=== PATIENT | male | born 1960 | race Caucasian/White ===

== ENCOUNTER 2019-03-20 09:46 | Emergency (ER) | payer OTHER ==
[2019-03-20 09:59] VITALS: BP 158/77
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
--- NOTE | 2019-03-20 11:11 | CR ---
Cervical spine: AP, lateral and odontoid views of the cervical spine were obtained as well as swimmers view. Mild disc space narrowing is noted at C5-C6. Anterior osteophytes are noted at C2-C3, C4-C5, C5-C6 and minimally at C6-C7. Prevertebral soft tissues are normal. No subluxation or fracture is seen. Mild ligamentum nuchal calcification is seen. Impression: 1. Mild degenerative change. Nothing acute is appreciated on CT study of the cervical spine. Diagnostic code #2
== END 2019-03-20 10:58 | disposition home or self-care (01) ==
LOC: JD.ED 09:46
DX: S16.1XXA Strain of muscle, fascia and tendon at neck level, initial encounter (principal); I10 Essential (primary) hypertension; E11.9 Type 2 diabetes mellitus without complications; I48.91 Unspecified atrial fibrillation; E78.00 Pure hypercholesterolemia, unspecified; M19.90 Unspecified osteoarthritis, unspecified site; E66.9 Obesity, unspecified; Z68.43 Body mass index [BMI] 50.0-59.9, adult; Z88.5 Allergy status to narcotic agent; Z79.82 Long term (current) use of aspirin; Z79.4 Long term (current) use of insulin; Z79.01 Long term (current) use of anticoagulants; Z79.899 Other long term (current) drug therapy; V58.5XXA Driver of pick-up truck or van injured in noncollision transport accident in traffic accident, initial encounter
CPT/HCPCS: 72040; 72040-26; 99282; 99283-25

== ENCOUNTER 2025-06-16 14:08 | Emergency (ER) | payer MEDICARE, OTHER ==
[2025-06-16] MEDS ORDERED: Sodium Chloride 0.9% 10 ML Syringe FLUSH PRN (16:43)
[2025-06-16 17:31] LABS: BASOPHILS ABSOLUTE AUTO 0.1 K/mm3 (0.0-0.2); BASOPHILS PERCENT AUTO 0.9 % (0.0-1.0); EOSINOPHILS ABSOLUTE AUTO 0.2 K/mm3 (0.0-0.4); EOSINOPHILS PERCENT AUTO 2.4 % (0.0-6.0); IMMATURE GRAN ABSOLUTE AUTO 0.08 K/mm3 (0.00-0.05); IMMATURE GRAN PERCENT AUTO 0.9 % (0.0-0.4); LYMPHOCYTES ABSOLUTE AUTO 0.8 K/mm3 (1.0-4.8); LYMPHOCYTES PERCENT AUTO 8.9 % (24.0-44.0); MEAN PLATELET VOLUME 9.3 fl (9.4-12.4); MONOCYTES ABSOLUTE AUTO 0.8 K/mm3 (0.0-0.8); MONOCYTES PERCENT AUTO 8.3 % (0.0-8.0); NEUTROPHILS ABSOLUTE AUTO 7.3 K/mm3 (1.8-7.7); NEUTROPHILS PERCENT AUTO 78.6 % (41.0-71.0); NRBC ABSOLUTE 0.00 (0.00-0.02); NRBC PERCENT 0.0 % (0.0-0.2); PLATELET COUNT,PLT 380 K/mm3 (150-400); RED BLOOD CELL COUNT 4.98 M/mm3 (4.52-5.90); WHITE BLOOD CELL COUNT,WBC 9.32 K/mm3 (3.9-11.3)
[2025-06-16 17:57] LABS: LACTIC ACID 1.4 mmol/L (0.4-2.0)
[2025-06-16 18:04] LABS: A/G RATIO 0.6 (1-2); ALANINE AMINOTRANSFERASE,ALT 30.0 U/L (16-63); ASPARTATE AMNIOTRANSFERASE,AST 28.0 U/L (15-37); BILIRUBIN TOTAL 1.1 mg/dL (0.2-1.0); BLOOD UREA NITROGEN,BUN 60.0 mg/dL (7-18); CARBON DIOXIDE,CO2 36.0 mEq/L (21-32); CHLORIDE,CL 96.0 mEq/L (98-107); CREATININE 1.3 mg/dL (0.7-1.3); EST CRCL DRUG DOSING (CG) 56.65 mL/min; ESTIMATED GFR 61.0 mL/min (>60); GLUCOSE RANDOM 261.0 mg/dL (70-99); POTASSIUM,K 4.9 mEq/L (3.5-5.1); PROTEIN TOTAL,TP 7.4 g/dl (6.4-8.2); SODIUM,NA 135.0 mEq/L (136-145)
[2025-06-16] MEDS: cefTRIAXone 1 GM, Lidocaine 1% 2.1 ML IM STA (21:24)
[2025-06-16 23:11] VITALS: BP 138/98; PULSE 73
== END 2025-06-16 21:35 | disposition home or self-care (01) ==
LOC: JD.ED 14:08
DX: I87.2 Venous insufficiency (chronic) (peripheral) (principal); L03.116 Cellulitis of left lower limb; L03.115 Cellulitis of right lower limb; I48.91 Unspecified atrial fibrillation; I10 Essential (primary) hypertension; E78.00 Pure hypercholesterolemia, unspecified; E11.9 Type 2 diabetes mellitus without complications; E66.9 Obesity, unspecified; Z79.899 Other long term (current) drug therapy; Z79.4 Long term (current) use of insulin; Z79.84 Long term (current) use of oral hypoglycemic drugs; Z88.8 Allergy status to other drugs, medicaments and biological substances; Z68.43 Body mass index [BMI] 50.0-59.9, adult
CPT/HCPCS: 36415; 80053; 82947; 83605; 85025; 85652; 86140; 96372; 99284; A9270; J0696; J2003

== ENCOUNTER 2025-06-21 11:35 | Emergency (ER) | payer MEDICARE, OTHER ==
[2025-06-21 12:00] VITALS: BP 133/67; PULSE 86
[2025-06-21 13:31] LABS: BASOPHILS ABSOLUTE AUTO 0.1 K/mm3 (0.0-0.2); BASOPHILS PERCENT AUTO 1.0 % (0.0-1.0); EOSINOPHILS ABSOLUTE AUTO 0.3 K/mm3 (0.0-0.4); EOSINOPHILS PERCENT AUTO 3.0 % (0.0-6.0); IMMATURE GRAN ABSOLUTE AUTO 0.03 K/mm3 (0.00-0.05); IMMATURE GRAN PERCENT AUTO 0.3 % (0.0-0.4); LYMPHOCYTES ABSOLUTE AUTO 0.9 K/mm3 (1.0-4.8); LYMPHOCYTES PERCENT AUTO 10.0 % (24.0-44.0); MEAN PLATELET VOLUME 9.0 fl (9.4-12.4); MONOCYTES ABSOLUTE AUTO 0.9 K/mm3 (0.0-0.8); MONOCYTES PERCENT AUTO 10.2 % (0.0-8.0); NEUTROPHILS ABSOLUTE AUTO 6.6 K/mm3 (1.8-7.7); NEUTROPHILS PERCENT AUTO 75.5 % (41.0-71.0); NRBC ABSOLUTE 0.00 (0.00-0.02); NRBC PERCENT 0.0 % (0.0-0.2); PLATELET COUNT,PLT 358 K/mm3 (150-400); RED BLOOD CELL COUNT 5.00 M/mm3 (4.52-5.90); WHITE BLOOD CELL COUNT,WBC 8.80 K/mm3 (3.9-11.3)
[2025-06-21 14:01] LABS: A/G RATIO 0.6 (1-2); ALANINE AMINOTRANSFERASE,ALT 32.0 U/L (16-63); ASPARTATE AMNIOTRANSFERASE,AST 22.0 U/L (15-37); BILIRUBIN TOTAL 0.9 mg/dL (0.2-1.0); BLOOD UREA NITROGEN,BUN 50.0 mg/dL (7-18); CARBON DIOXIDE,CO2 36.0 mEq/L (21-32); CHLORIDE,CL 96.0 mEq/L (98-107); CREATININE 1.6 mg/dL (0.7-1.3); EST CRCL DRUG DOSING (CG) 46.03 mL/min; ESTIMATED GFR 48.0 mL/min (>60); GLUCOSE RANDOM 103.0 mg/dL (70-99); POTASSIUM,K 4.8 mEq/L (3.5-5.1); PROTEIN TOTAL,TP 7.5 g/dl (6.4-8.2); SODIUM,NA 137.0 mEq/L (136-145)
== END 2025-06-21 14:00 | disposition home or self-care (01) ==
LOC: JD.ED 11:35
DX: I87.2 Venous insufficiency (chronic) (peripheral) (principal); I48.91 Unspecified atrial fibrillation; E78.00 Pure hypercholesterolemia, unspecified; I10 Essential (primary) hypertension; E11.9 Type 2 diabetes mellitus without complications; Z90.49 Acquired absence of other specified parts of digestive tract; Z88.8 Allergy status to other drugs, medicaments and biological substances; Z79.899 Other long term (current) drug therapy; Z79.4 Long term (current) use of insulin; Z79.84 Long term (current) use of oral hypoglycemic drugs
CPT/HCPCS: 36415; 80053; 85025; 86140; 99283

== ENCOUNTER 2025-06-28 11:31 | Emergency (ER) | payer MEDICARE, OTHER ==
[2025-06-28] MEDS: Sodium Chloride 0.9% 10 ML Syringe FLUSH PRN (12:31)
[2025-06-28 12:45] LABS: BASOPHILS ABSOLUTE AUTO 0.1 K/mm3 (0.0-0.2); BASOPHILS PERCENT AUTO 1.1 % (0.0-1.0); EOSINOPHILS ABSOLUTE AUTO 0.2 K/mm3 (0.0-0.4); EOSINOPHILS PERCENT AUTO 2.8 % (0.0-6.0); IMMATURE GRAN ABSOLUTE AUTO 0.03 K/mm3 (0.00-0.05); IMMATURE GRAN PERCENT AUTO 0.4 % (0.0-0.4); LYMPHOCYTES ABSOLUTE AUTO 0.8 K/mm3 (1.0-4.8); LYMPHOCYTES PERCENT AUTO 11.4 % (24.0-44.0); MEAN PLATELET VOLUME 8.6 fl (9.4-12.4); MONOCYTES ABSOLUTE AUTO 0.8 K/mm3 (0.0-0.8); MONOCYTES PERCENT AUTO 10.7 % (0.0-8.0); NEUTROPHILS ABSOLUTE AUTO 5.3 K/mm3 (1.8-7.7); NEUTROPHILS PERCENT AUTO 73.6 % (41.0-71.0); NRBC ABSOLUTE 0.00 (0.00-0.02); NRBC PERCENT 0.0 % (0.0-0.2); PLATELET COUNT,PLT 376 K/mm3 (150-400); RED BLOOD CELL COUNT 4.90 M/mm3 (4.52-5.90); WHITE BLOOD CELL COUNT,WBC 7.21 K/mm3 (3.9-11.3)
[2025-06-28 13:04] LABS: INR 1.22
[2025-06-28 13:05] LABS: PTT,PARTIAL THROMBOPLSTIN TIME 28.6 SECONDS (21.7-31.4)
[2025-06-28 13:15] LABS: A/G RATIO 0.6 (1-2); ALANINE AMINOTRANSFERASE,ALT 40.0 U/L (16-63); ASPARTATE AMNIOTRANSFERASE,AST 33.0 U/L (15-37); BILIRUBIN TOTAL 1.3 mg/dL (0.2-1.0); BLOOD UREA NITROGEN,BUN 49.0 mg/dL (7-18); CARBON DIOXIDE,CO2 34.0 mEq/L (21-32); CHLORIDE,CL 96.0 mEq/L (98-107); CREATINE KINASE,CK 145.0 U/L (39-308); CREATININE 1.9 mg/dL (0.7-1.3); EST CRCL DRUG DOSING (CG) 38.76 mL/min; ESTIMATED GFR 39.0 mL/min (>60); GLUCOSE RANDOM 120.0 mg/dL (70-99); POTASSIUM,K 5.2 mEq/L (3.5-5.1); PROTEIN TOTAL,TP 7.3 g/dl (6.4-8.2); SODIUM,NA 134.0 mEq/L (136-145); TSH 1.861 uIU/mL (0.358-3.74)
[2025-06-28 14:12] VITALS: BP 87/55; PULSE 94
== END 2025-06-28 14:00 | disposition home or self-care (01) ==
LOC: JD.ED 11:31
DX: M79.81 Nontraumatic hematoma of soft tissue (principal); R25.2 Cramp and spasm; I48.91 Unspecified atrial fibrillation; I10 Essential (primary) hypertension; E78.00 Pure hypercholesterolemia, unspecified; E11.9 Type 2 diabetes mellitus without complications; E66.9 Obesity, unspecified; Z79.899 Other long term (current) drug therapy; Z79.4 Long term (current) use of insulin; Z79.84 Long term (current) use of oral hypoglycemic drugs; Z88.8 Allergy status to other drugs, medicaments and biological substances; Z79.01 Long term (current) use of anticoagulants; Z68.43 Body mass index [BMI] 50.0-59.9, adult
CPT/HCPCS: 36415; 80053; 82550; 83735; 84443; 85025; 85610; 85730; 99283